=== PATIENT | male | born 1970 | race Two or more races ===

== ENCOUNTER 2019-05-03 11:30 | Outpatient (CLI) | payer OTHER ==
[2019-05-03] MEDS ORDERED: EAR WAX REMOVER15 ML OT (12:06)
[2019-05-03] MEDS ORDERED: FLONASE16 GM NASAL (12:06)
[2019-05-03] MEDS ORDERED: CEFUROXIME500 MG PO (12:06)
[2019-05-03] MEDS ORDERED: ZYRTEC10 MG PO (12:06)
== END 2019-05-03 11:45 | disposition home or self-care (01) ==
LOC: OFIC 805 11:30
DX: J32.8 Other chronic sinusitis (principal); J31.0 Chronic rhinitis; J34.3 Hypertrophy of nasal turbinates

== ENCOUNTER → 2021-01-27 | Emergency (ER) | payer OTHER ==
[~2021-01-27] VITALS: Ht 177.8 cm; Wt 86.2 kg
[~2021-01-27] MED LIST: CEFUROXIME500 MG PO; EAR WAX REMOVER15 ML OT; FLONASE16 GM NASAL; ZYRTEC10 MG PO
== END | disposition home or self-care (01) ==
LOC: ER 11:51
DX: R03.0 Elevated blood-pressure reading, without diagnosis of hypertension (principal)

== ENCOUNTER → 2021-01-27 | Emergency (ER) | payer OTHER ==
[~2021-01-27] VITALS: Ht 177.8 cm; Wt 86.2 kg
== END | disposition left against medical advice (07) ==
LOC: ER 18:53
DX: Z53.20 Procedure and treatment not carried out because of patient's decision for unspecified reasons (principal)

== ENCOUNTER 2021-03-03 15:51 | Emergency (ER) | payer OTHER ==
[~2021-03-03] VITALS: Ht 177.8 cm; Wt 86.2 kg
[2021-03-03] MEDS ORDERED: PEPCID AC20 MG PO (19:15)
== END 2021-03-03 19:41 | disposition home or self-care (01) ==
LOC: ER 15:51
DX: R10.32 Left lower quadrant pain (principal)

== ENCOUNTER 2022-12-19 14:13 | Emergency (ER) | payer OTHER ==
[~2022-12-19] VITALS: Ht 177.8 cm; Wt 83.9 kg
[~2022-12-19 14:13] MED LIST changes: +PEPCID AC20 MG PO
== END 2022-12-19 16:55 | disposition home or self-care (01) ==
LOC: ER 14:13
DX: M54.50 Low back pain, unspecified (principal)

== ENCOUNTER 2024-11-27 19:43 | Emergency (ER) | payer OTHER ==
[~2024-11-27] VITALS: Ht 177.8 cm; Wt 86.2 kg
[2024-11-27] MEDS ORDERED: ATORVASTATIN CA10 MG PO (21:09)
[2024-11-27] MEDS ORDERED: KETOROLAC TROMETHAMINE 30 MG VIAL IM STA (22:54)
[2024-11-27] MEDS ORDERED: TRAMADOL HCL 50 MG TABLET PO STA (22:55)
== END 2024-11-27 23:57 | disposition home or self-care (01) ==
LOC: ER 19:45
DX: M54.9 Dorsalgia, unspecified (principal)